=== PATIENT | female | born 1965 | race Caucasian/White ===

== ENCOUNTER 2018-01-05 20:09 | Inpatient (IN) | payer BC ==
[~2018-01-05] VITALS: Ht 167.6 cm; Wt 77.1 kg
--- NOTE | ~2018-01-05 | OP ---
PATIENT NAME: JIM SCHWARZ MEDICAL RECORD: [id number] :67 LOCATION:[id number] ADMISSION DATE:01/06/18 SURGEON: ANNE VIVEROS MD DATE OF OPERATION: 01/07/2018 PREOPERATIVE DIAGNOSIS: Symptomatic gallstones. POSTOPERATIVE DIAGNOSES: 1. Acute cholecystitis. 2. Hepatomegaly. 3. Intraabdominal adhesions. PROCEDURES: 1. Laparoscopic cholecystectomy. 2. Intraoperative cholangiography without immediate surgeon interpretation. 3. A 14-gauge needle liver biopsy. SURGEON: Anne Viveros MD CERAMIC RESEARCH ENGINEER: None. BLOOD LOSS: Less than 50 cc. ANESTHESIA: General. COMPLICATIONS: None. The indication for liver biopsy was hepatomegaly. The risks, possible complications, and alternatives to procedure were explained to the patient. She elected to proceed. The discussion specifically included, but was not limited to, bleeding requiring emergency reoperation, infection, intestinal injury, common bile duct injury. OPERATIVE COURSE: The patient was conveyed to the operating room electively on 01/07/2018. General anesthesia was induced by the anesthesia staff. The abdomen was sterilely prepped and draped. A small skin ebonie was accomplished in the left upper quadrant. A Veress needle was inserted through the skin ebonie into the peritoneal cavity. CO2 insufflation was begun. Once a sufficient pneumoperitoneum had been achieved, a 5-mm trocar was inserted through an incision in the right upper quadrant. Under direct internal vision utilizing a television camera, a 12-mm trocar was inserted through an incision at the umbilicus. Two more trocars were inserted. A 5-mm trocar was inserted in the epigastrium. Another 5-mm trocar was inserted far laterally in the right upper quadrant. During insertion of the Veress needle and all trocars, there appeared to have been no injury to the bowels, any intraperitoneal or retroperitoneal structures. The indication for the liver biopsy was hepatomegaly. Under laparoscopic guidance, I percutaneously accessed the right upper quadrant utilizing a 14-gauge core needle liver biopsy device. Cores were obtained over the convexity of the liver. The biopsy sites were made hemostatic with electrocautery. I then advanced the cholangiogram trocar. I punctured the fundus of the gallbladder. I aspirated bile. I then injected dye. Static fluoroscopic images were obtained. These cholangiographic images are sent to the radiologist for interpretation. OPERATIVE REPORT [id number] JIM SCHWARZ I withdrew the cholangiogram trocar. The gallbladder was grasped and retracted cephalad. The infundibulum was grasped and retracted laterally. Critical view of the triangle of Calot was visualized. Blunt dissection was begun on the triangle of Calot. One cystic artery and one cystic duct were identified. These were clipped multiply and divided between clips. The gallbladder was then excised from its bed and the liver. It was placed within an Endobag retrieval device and was withdrawn through the umbilical fascia defect. The 12-mm trocars were placed and the abdomen reinsufflated. I irrigated and aspirated in the right upper quadrant. There was no bleeding even at low pressure of 8. The Kelby-Yamileth suture closure device and 0 Vicryl sutures were used to close the umbilical fascia. All the trocars were removed and the abdomen desufflated. The incision at the umbilicus was closed with interrupted 4-0 Vicryl Rapide sutures. The other skin incisions were closed with interrupted intracuticular 3-0 Vicryls. Benzoin and Steri-Strips were applied. The patient was then extubated and conveyed to post-anesthesia care unit where she was in stable condition. TRANSINT:[id number] Voice Confirmation ID: [id number] DOCUMENT ID: [id number] ANNE VIVEROS MD at 1240 CC: GABBY RODRIGUEZ MD and THADDEUS PHAM DO [id number] DICTATION DATE: 01/07/182217 FILLING MACHINE SET UP MECHANIC: 01/07/18 2341 DIS IN 01/08/18 [facility] [address] [place] [address]
--- NOTE | ~2018-01-05 | HP ---
PATIENT: JIM SCHWARZ MEDICAL RECORD: [id number] ACCOUNT: [id number] LOCATION:[facility] : 67 ADMISSION DATE: 01/06/18 HISTORY AND PHYSICAL EXAMINATION DATE OF ADMISSION: 01/06/2018 CHIEF COMPLAINT: Upper abdominal pain. HISTORY OF PRESENT ILLNESS: This is a 52-year-old white female who presented to the Emergency Department complaining of epigastric abdominal pain, radiating to the right upper quadrant, this started about 0100 hours on 01/05/2018. She had nausea and vomiting, but no fever or chills. Pain was described as constant and it was not exacerbated by eating. There was nothing she could do to make it go away. In the Emergency Room, her white count was a little elevated at 14,000, platelets high at 575,000. Basic metabolic panel was normal. Liver functions were okay as well as amylase and lipase. Urinalysis showed moderate ketones, trace leukocyte esterase, 5 to 10 red blood cells and moderate bacteria. Ultrasound of the gallbladder showed multiple gallstones with no evidence of acute cholecystitis. CT of abdomen and pelvis showed the same except there was an 8-mm nonobstructing stone found in the left distal ureter. There was no hydronephrosis. She is admitted for further treatment. PAST MEDICAL AND SURGICAL HISTORY: Hypothyroidism and history of kidney stones. PAST SURGICAL HISTORY: Umbilical hernia repair. DRUG ALLERGIES: None. HOME MEDICATIONS: Levothyroxine 13 mcg once a day. HABITS: No tobacco, alcohol or drugs. SOCIAL HISTORY: She is . FAMILY HISTORY: A couple of family members have had their gallbladders removed. REVIEW OF SYSTEMS: GENERAL: No major weight changes. HEENT: No particular sinus or allergy problems. RESPIRATORY: No history of asthma or emphysema. CARDIAC: No chest pain, palpitations or history of heart disease. GASTROINTESTINAL: No significant problems. GENITOURINARY: No significant problems. MUSCULOSKELETAL: Unremarkable. NEUROLOGIC: No seizures or headaches. PSYCHIATRIC: No depression or melancholia. PHYSICAL EXAMINATION: VITAL SIGNS: Temperature 98.8, pulse 103, respirations 18, blood pressure 148/91, O2 sat 95%. GENERAL: She is awake and alert. She is having a little pain. HEENT: Grossly within normal limits. NECK: Supple. HEART: Regular rate and rhythm without murmur. HISTORY AND PHYSICAL [id number] JIM SCHWARZ LUNGS: Clear. ABDOMEN: Soft, but there is tenderness in the epigastric area and right upper quadrant area. No guarding, no rebound, no mass. Bowel sounds are active. EXTREMITIES: No edema. LABORATORY AND DIAGNOSTIC DATA: CBC with a white count of 14,600, hemoglobin 11.8, platelets number 575,000. Basic metabolic panel is okay. Liver functions are okay. Amylase 56, lipase 121. Urinalysis showed moderate ketones, trace leukocyte esterase, 5 to 10 red blood cells, moderate bacteria. Ultrasound of the gallbladder shows multiple gallstones without gallbladder wall thickening. CT of the abdomen and pelvis; 8-mm nonobstructing stone in the left distal ureter, no hydronephrosis. ASSESSMENT: 1. Acute cholecystitis with right upper quadrant abdominal pain radiating to the right. 2. An 8-mm left distal ureteral kidney stone. PLAN: Dr. Medina has been consulted. We will consult Dr. Medellin as well. Other tests or procedures as warranted. TRANSINT:[id number] Voice Confirmation ID: [id number] DOCUMENT ID: [id number] GABBY RODRIGUEZ MD at 0852 CC: [id number] DICTATION DATE: 01/06/18 1529 BUSINESS SOLUTIONS ARCHITECT: 01/06/18 1628 DIS IN 01/08/18 [facility] [id number] [place] [address]
[2018-01-05] MEDS ORDERED: TIROSINT13 MCG (20:18)
[2018-01-05] MEDS ORDERED: EZFE 200200 MG (20:18)
[2018-01-05 21:34] LABS: BASOPHILS 0.2 % (0-2); EOSINOPHILS 0.2 % (0-7); HEMATOCRIT 39.2 % (36.0-48.0); HEMOGLOBIN 11.8 g/dL (12-16); IMMATURE GRANULOCYTES 0.2 % (0-5); LYMPHOCYTES 9.5 % (15-50); MCH 21.3 pg (26.0-34.0); MCHC 30.1 g/dL (31.0-37.0); MCV 70.9 fL (80.0-100.0); MEAN PLATELET VOLUME 10.1 fL (7.4-10.4); MONOCYTES 4.8 % (2-11); NEUTROPHILS 85.1 % (40-80); PLATELET COUNT 575 10x3/uL (130-400); RBC 5.53 10x6/uL (4.00-5.40); RDW 26.3 % (11.5-14.5); WBC 14.6 10x3/uL (4.8-10.8)
[2018-01-05 21:40] LABS: ANION GAP 18.7 mmol/L (8-16); BILIRUBIN - TOTAL 0.43 mg/dL (0.2-1.3); CALCIUM 9.6 mg/dL (8.5-10.1); CARBON DIOXIDE 24.7 mmol/L (21.0-32.0); CREATININE - SERUM 0.9 mg/dL (0.6-1.3); POTASSIUM - SERUM 3.4 mmol/L (3.5-5.1); PROTEIN - SERUM 8.9 g/dL (6.4-8.2)
[2018-01-05 21:50] LABS: APPEARANCE CLEAR (CLEAR); BILIRUBIN NEGATIVE (NEGATIVE); COLOR YELLOW (YELLOW); GLUCOSE NEGATIVE (NEGATIVE); KETONE MODERATE mg/dL (NEGATIVE); NITRITE NEGATIVE (NEGATIVE); PROTEIN 1+ mg/dL (NEGATIVE); SPECIFIC GRAVITY 1.015 (1.005-1.020); UROBILINOGEN NORMAL (NORMAL)
[2018-01-05 21:51] LABS: WHITE CELLS - URINE 0-5 /hpf (0-5)
[2018-01-05 21:52] LABS: BACTERIA MODERATE /hpf (NONE SEEN); EPITHELIAL CELLS 0-5 /hpf (0-5)
[2018-01-05 22:00] VITALS: BP 167/93
[2018-01-05 23:00] VITALS: BP 149/65
[2018-01-06] VITALS (15 sets, daily range): BP systolic 123–187; BP diastolic 59–102; Ht 167.6 cm; Wt 77.1 kg
[2018-01-07] VITALS (9 sets, daily range): BP systolic 120–173; BP diastolic 66–97
[2018-01-07] MEDS ORDERED: TIROSINT150 MCG PO (08:44)
[2018-01-08] VITALS (9 sets, daily range): BP systolic 115–147; BP diastolic 56–87
[2018-01-08] MEDS ORDERED: HYDROCODONE-APA1 TAB PO (12:36)
== END 2018-01-08 14:19 | disposition home or self-care (01) | DRG 418 ==
LOC: D.ER 20:09 → D.EDHOLD 01-06 01:33 → D.MS 01-06 01:33 → D.EDHOLD 01-06 01:33 → D.MS 01-06 11:33 → D.SDCHOLD 01-07 14:38 → D.MS 01-07 14:51
PROVIDERS: Emergency Medicine; Surgery
PROC: 0FB03ZX Excision of Liver, Percutaneous Approach, Diagnostic (ICD-10-PCS; 2018-01-07)
PROC: 0FT44ZZ Resection of Gallbladder, Percutaneous Endoscopic Approach (ICD-10-PCS; principal; 2018-01-07 13:30)
PROC: BF121ZZ Fluoroscopy of Gallbladder using Low Osmolar Contrast (ICD-10-PCS; 2018-01-07 13:30)
DX: K80.00 Calculus of gallbladder with acute cholecystitis without obstruction (principal); N20.1 Calculus of ureter; E03.9 Hypothyroidism, unspecified; R16.0 Hepatomegaly, not elsewhere classified; K66.0 Peritoneal adhesions (postprocedural) (postinfection)

== ENCOUNTER 2018-01-25 09:00 | Day surgery (SDC) | payer BC ==
[2018-01-24 16:16] LABS: HEMATOCRIT 33.9 % (36.0-48.0); HEMOGLOBIN 9.9 g/dL (12-16); MCH 21.4 pg (26.0-34.0); MCHC 29.2 g/dL (31.0-37.0); MCV 73.4 fL (80.0-100.0); MEAN PLATELET VOLUME 9.4 fL (7.4-10.4); RBC 4.62 10x6/uL (4.00-5.40); RDW 24.4 % (11.5-14.5); WBC 6.5 10x3/uL (4.8-10.8)
[2018-01-24 16:24] LABS: ANION GAP 9.8 mmol/L (8-16); CALCIUM 8.5 mg/dL (8.5-10.1); CARBON DIOXIDE 27.7 mmol/L (21.0-32.0); CREATININE - SERUM 1.3 mg/dL (0.6-1.3); POTASSIUM - SERUM 3.5 mmol/L (3.5-5.1)
[~2018-01-25] VITALS: Ht 167.6 cm; Wt 77.1 kg
--- NOTE | ~2018-01-25 | OP ---
PATIENT NAME: JIM SCHWARZ MEDICAL RECORD: [id number] :67 LOCATION:[facility] ADMISSION DATE: SURGEON: ANNE BROWN MD DATE OF OPERATION: 01/25/2018 SURGEON: Anne Brown MD ANESTHESIA: General anesthesia by Alvarez Kong MD DIAGNOSIS: An 8-mm left distal ureteral stone. PROCEDURES: Cystoscopy, left ureteroscopy and stone extraction, left ureteral stent insertion of 6-Telugu x 24 cm with string attached. SPECIMEN: Left ureteral stone. BLOOD LOSS: None. CLINICAL HISTORY: This is a 52-year-old female who presented initially with epigastric pain. She was found to have cholelithiasis as well as a left 8-mm distal ureteral stone. She was not having much flank pain on the left side, in fact she had no flank pain on the left side. She underwent a laparoscopic cholecystectomy by Dr. Medina. Now, she comes to have the left ureteral stone removed. Lately, she is starting to have some increased urinary frequency and urgency as her only symptom from the distal ureteral stone. She is not allergic to any medications. We gave her Ancef on-call to the OR. DESCRIPTION OF PROCEDURE: The patient was given induction of general anesthesia. She was placed in the dorsal lithotomy position. Fluoroscopy revealed triangular-shaped radiodensity in the pelvis as the stone. We then performed cystoscopy using a 21-Telugu cystoscope. An open-ended ureteral catheter was inserted into the left ureteral orifice. We went right up against the stone, which I could palpate. We then inserted a Glidewire through the lumen of the ureteral catheter. This managed to go past the stone and up into the renal pelvis. We then removed the ureteral catheter, leaving the Glidewire in place. Over the wire, we inserted a 21-Telugu x 4-cm ureteral dilation balloon. The balloon was used to dilate the left ureteral orifice to 16 atmospheres for few seconds. The balloon was then deflated and removed entirely. The wire was still in place. We then switched to the ureteroscope. We visualized the stone. We placed a 4-wire 2.4-Telugu basket around the stone. Once the stone was fully entrapped, we were able to remove the entire stone under direct vision. We then loaded the Glidewire back onto the cystoscope and then, over the wire, we inserted the 6-Telugu x 24-cm ureteral stent. Once the stent was in correct position, we slowly withdrew the wire to allow the proximal end of the stent to coil in the renal pelvis. We then removed the wire entirely. The distal end of stent was pushed into the bladder using a pusher. The bladder was then emptied through the cystoscope sheath. The scope was removed. The string on the distal end of the stent was maintained. It was taped to the suprapubic area with a small piece of Tegaderm. The patient will be going home today. I will see her in followup in a few days' time to remove the stent by pulling on the string. TRANSINT:[id number] Voice Confirmation ID: [id number] DOCUMENT ID: [id number] OPERATIVE REPORT [id number] JIM SCHWARZ ROBERT S MD at 1656 CC: [id number] DICTATION DATE: 01/25/18 1609 CHIEF CLINICAL OFFICER: 01/25/18 1626 PRE [facility] [address] [place] [address]
[~2018-01-25 09:00] MED LIST: EZFE 200200 MG; HYDROCODONE-APA1 TAB PO; TIROSINT13 MCG; TIROSINT150 MCG PO
[2018-01-25] MEDS ORDERED: PAROXETINE HCL10 MG PO (10:53)
[2018-01-25 11:00] VITALS: BP 124/78; Ht 167.6 cm; Wt 77.1 kg
[2018-01-25 11:25] LABS: HCG URINE NEGATIVE (NEGATIVE)
[2018-02-02 17:11] LABS: CALCULI - CA OXALATE MONOHYDR 90 % (()); CALCULI - COLOR Brown (()); CALCULI - SIZE 10x5x4 mm (())
== END 2018-01-25 18:10 | disposition home or self-care (01) ==
LOC: D.OPS 09:00 → D.PAN 11:00 → D.OPS 11:00
PROVIDERS: Anesthesiology; Urology
DX: N20.1 Calculus of ureter (principal); Z01.812 Encounter for preprocedural laboratory examination